=== PATIENT | female | born 1990 ===

== ENCOUNTER → 2018-11-17 | Outpatient (REF) ==
[2018-11-17 13:44] LABS: HEPATITIS B SURFACE ANTIGEN NEGATIVE (NEGATIVE); RUBELLA IgG QUALITATIVE IMMUNE (IMMUNE)
== END ==
LOC: M LAB LCGH 13:00
PROVIDERS: ATTEND Obstetrics & Gynecology
DX: Z13.89 Encounter for screening for other disorder (principal)